=== PATIENT | male | born 1965 | race Caucasian/White ===

== ENCOUNTER 2023-06-23 22:41 | Observation (INO) | payer OTHER, SELFPAY ==
[2023-06-23] VITALS (16 sets, daily range): BP systolic 134–180; BP diastolic 63–128
--- NOTE | 2023-06-23 19:20 | ED.GENMED ---
History of Present Illness
General
Chief Complaint: Visual Problem
Time Seen by Provider: 06/23/23 19:20
Travel History
Have you had any contact with someone who has COVID-19?: No
Do you have any symptoms of coronavirus? Fever > 100 degrees, chills, cough, shortness of breath, sore throat, loss of taste or smell, muscle aches, or headache?: No
History of Present Illness
History of Present Illness:
HPI: At about 8 AM today, the patient had a vague sensation with his eye that he could not qualify any further. This went away and then when he went to [facility] where it was bright he noticed an increasing abnormality such as double vision and blurred
vision. He later went to urgent care where they removed a lot of wax in the right eye and he had some dizziness earlier. He no longer has dizziness but he is concerned of the ongoing vision change. He wears magnifiers. He does not normally have
high blood pressure but was found to be hypertensive at both urgent care and in triage today.
EXAM:
GENERAL: Well appearing in no distress, he is hypertensive
HEENT: Moist oral mucosa
EYES: The patient has no field cuts on examination, there is no disconjugate gaze, EOMI, pupils are equally reactive directly and consensually, visual acuity in the right is 20/30 and to the left is 20/30
CARDIOVASCULAR: No murmurs, normal heart rate, regular rhythm, No chest wall tenderness
PULMONARY: No respiratory distress, breath sounds are clear and equal
ABDOMEN: Soft with no peritoneal signs, no tenderness
NEUROLOGIC: Excellent strength all extremities, no coordination deficits
PSYCHIATRIC: Appropriate mental status, normal insight and judgement
EXTREMITIES: Nontender, no edema, moves all extremities equally
SKIN: No rash, no lesions
TIME OF INITIAL ENCOUNTER: 7:20 PM
NUMBER AND COMPLEXITY OF PROBLEMS ADDRESSED AT THE ENCOUNTER
� Chronic conditions affecting care: Denies any significant past medical history
� Acute Exacerbation and/or Progression of Chronic Illness: This is an acute
� Differential Diagnosis includes: Intracranial mass, uncontrolled high blood pressure, diabetes, cranial nerve palsy
AMOUNT AND/OR COMPLEXITY OF DATA TO BE REVIEWED AND ANALYZED
� I performed an independent evaluation of and my interpretation is:
EKG:
CT: CT brain negative for anything acute
X-rays:
Laboratory Studies: CBC, BMP, sed rate all normal
Other:
� Review of other/old records: I look for old records�no old records available for review
� Clinical information was obtained by an independent historian: I spoke to the at bedside
� Prescriptions/Medications Considered but not given:
� Further testing considered but not performed:
RISK OF COMPLICATIONS AND/OR MORBIDITY OR MORTALITY OF PATIENT MANAGEMENT
� Social determinants of health affecting care: Lives at home
� Discussion with other providers: Discussed with Dr. Lutz full-strength aspirin without Plavix and MR imaging for tomorrow with admission to the hospital; Dr. Santoyo for admission at 9:30 PM
� Escalation of care including admission/observation vs risk of discharge considered: The patient's eye/neuro exam is unremarkable. Although he reports double vision there are no objective findings on exam. I therefore spoke to
Dr. Bell who recommends patient stay in the hospital for MR imaging and further evaluation.
Phy Exam
Physical Exam
Physical Exam:
See HPI
Course
Orders/Labs/Results
Orders:
Orders
06/23/23 19:29
Electrocardiogram (*1) Urgent
Reason for Study: Vertigo / Dizzy
CT Head W/o Iv Contrast Urgent
Comment:
Reason For Exam: new double vision
EKG- Treatment ONCE
06/23/23 19:45
Basic Metabolic Panel Urgent
CBC/With ESR Urgent
06/23/23 21:28
Aspirin 325 mg PO NOW STA
Abnormal Lab Results
06/23/23
19:45
Hgb 18.7 H g/dL
(13.0-18.0)
MCH 31.4 H pg
(27.0-31.0)
Absolute Neuts (auto) 7.5 H 10^3/uL
(1.4-6.5)
Neutrophils % 77.2 H %
(42.2-75.2)
Lymphocytes % 15.0 L %
(20.5-51.1)
Sodium 134 L mmol/L
(135-145)
Carbon Dioxide 20 L mmol/L
(22-30)
Glucose 115 H mg/dl
(70-99)
06/23/23 19:45
06/23/23 19:45
Vital Signs
Initial and Last Documented VS:
Initial Vital Signs
Temp Pulse Resp BP Pulse Ox
98.0 F 105 17 180/119 96
06/23/23 17:33 06/23/23 17:33 06/23/23 17:33 06/23/23 17:33 06/23/23 17:33
Last Documented Vital Signs
Temp Pulse Resp BP Pulse Ox
98.0 F 78 17 144/68 99
06/23/23 17:33 06/23/23 20:30 06/23/23 20:30 06/23/23 20:30 06/23/23 20:30
*Critical Care Note
Total Time (30-74mins, 75-104mins- exclusive of procedures): Not Applicable
ED Attending Note
-
Portions of this chart may have been created with voice recognition software.� Occasional wrong word or��sound alike� substitutions may have occurred due to the inherent limitations of voice recognition software.
Discharge Plan
Departure
Patient Disposition: Admit
Date of Disposition: 06/23/23
Time of Disposition: 21:29
Presentation/result/management discussed w/ accepting MD/DO: Hospitalist
Discharge Problem:
Diplopia
Prescriptions:
No Action
loratadine [Claritin] 10 mg Tablet
10 mg PO HS
Referrals:
Joseph Suh MD [Family Provider] -
Interventions
Interventions:
*Risk Screen - Suicide Last Done: 06/23/23 17:33
*General Assessment Last Done: 06/23/23 17:33
*Neglect/Abuse Screening Last Done: 06/23/23 17:33
*ED COVID-19 Vaccine History Last Done: 06/23/23 17:33
ED- Neurological Assessment Last Done: 06/23/23 19:47
ED-EENT Assessment Last Done: 06/23/23 19:47
ED Swallowing Screen Last Done: 06/23/23 22:07
Discharge Date and Time
Print Language: TRINIDADIAN
[2023-06-23 19:54] LABS: % Basophils 0.3 % (0-2); % Eosinophils 0.6 % (0-6); % Immature Granulocytes 0.3 % (0-0.5); % Monocytes 6.6 % (1.7-9.3); % Neutrophils 77.2 % (42.2-75.2); Absolute Eosinophils 0.1 10^3/uL (0-0.7); Absolute Lymphocytes 1.5 10^3/uL (1.2-3.4); Absolute Monocytes 0.6 10^3/uL (0.1-0.6); Absolute Neutrophils 7.5 10^3/uL (1.4-6.5); Hematocrit 51.5 % (39.0-52.0); Hemoglobin 18.7 g/dL (13.0-18.0); Mean Corp Hgb Conc. 36.3 g/dL (33.0-37.0); Mean Corpuscular Hgb 31.4 pg (27.0-31.0); Mean Corpuscular Volume 86.4 fL (80.0-94.0); Mean Platelet Volume 10.2 fL (7.4-10.4); Nucleated Red Blood Cells % 0 % (-); Platelet Count 233 10^3/uL (130-400); Red Blood Cell Count 5.96 10^6/uL (4.70-6.10); Red Cell Dist. Width 12.6 % (11.5-14.5); White Blood Cell Count 9.7 10^3/uL (4.8-10.8)
[2023-06-23 20:01] LABS: Erythrocyte Sed Rate 1 mm/hour (0-20)
[2023-06-23 20:09] LABS: Blood Urea Nitrogen 11 mg/dl (9-20); Calcium 9.6 mg/dl (8.4-10.2); Carbon Dioxide 20 mmol/L (22-30); Chloride 105 mmol/L (98-107); Glucose 115 mg/dl (70-99); Potassium 4.4 mmol/L (3.5-5.1); Sodium 134 mmol/L (135-145); eGFR > 60.00
[2023-06-23] MEDS: ASPIRIN 325 MG PO (22:08)
--- NOTE | 2023-06-23 22:30 | HPS.HSE ---
Family Physician
-
Family Physician: Joseph Suh
Chief Complaint
-
Double Vision
History of Present Illness
Patient is a 58 y/o male without significant past medical history presents with double vision. Patient reports he went to [facility] this morning and on the drive he noted he was having trouble with depth perception. He returned home and worked on his
computer for several hours without any symptoms. At lunchtime he went to [facility] to run some errands, and while on the ride he had recurrence of difficulty with his depth perception. Symptoms worsened while he was at [facility] and he called his to pick
him up. With his worsening symptoms they would need to the urgent care for evaluation. Patient notes on the ride over he developed double vision describing seeing 2 cars, 1 and the oncoming addie and 1 coming directly at him. He states he only
notices double vision when looking in the distance. He denies any prior similar episodes.
Medical History
Past Medical History
Past Medical History: Reports None
Past Surgical History: Reports None
Social History
Tobacco: Non-smoker
Family History
Family History: Not pertinent
Allergies / Home Medications
Allergies reflects when Allergies were last updated in [employer].
Home Medications with original date entered in [employer]
Allergy/Medication List:
Allergies
Allergy/AdvReac Type Severity Reaction Status Date / Time
pollen extracts Allergy Mild Unknown Verified 06/23/23 21:58
Home Medications
loratadine 10 mg tablet (Claritin) 10 mg PO HS 06/23/23
Review of Systems
-
A 12 point ROS was completed and negative except as noted: Yes
Constitutional: Denies Fever or Chills
Respiratory: Denies Cough or Trouble Breathing
Cardiac: Denies Chest Pain or Palpitations
Abdomen/GI: Denies Abdominal Pain, Nausea, Vomiting or Diarrhea
Physical Exam
Vital Signs
Vital Signs
Temp Pulse Resp BP Pulse Ox
98.0 F 78 17 144/68 99
06/23/23 17:33 06/23/23 20:30 06/23/23 20:30 06/23/23 20:30 06/23/23 20:30
Physical Exam
General: Well Nourished, No Apparent Distress, Comfortable and Conversant
HEENT: Anicteric and Moist mucous membranes
Respiratory: Clear and Non Labored Respirations
Cardiac: S1/S2 and Regular Rhythm
GI: Soft and Non Tender
Musculoskeletal: No Clubbing, No Cyanosis and No Edema
Skin: Warm and Dry
Neuro: Awake, Alert, Oriented, No Motor Deficits and Other (PERRLA; No visual field deficits; Double vision is reproducible while focusing on an object at a distance)
Psych: Calm
Laboratory Results
-
06/23/23 19:45
06/23/23 19:45
Data Reviewed
-
Lab Data: Labs Reviewed by me
Impression/Plan
-
Horizontal Diplopia, history consistent with 6th cranial nerve palsy
-Consult Neurology
-Check Brain MRI with Head/Neck MRA
-Start aspirin 325mg Daily
-Check FLP and HgbA1c
-Monitor Neuro-Checks
DVT Proph: SCDs
Code Status: Full Code
--- NOTE | 2023-06-23 23:25 | W.PN.UPDATE ---
Update Note
Progress Note Update
Patient seen and examined independently. Agree with findings and plan as set forth in today's H&P by Jacquelyn Cortés PA-C.
Patient is a 58y M with no significant PMH who presents to ED complaining of vague malaise and developing visual changes. Patient states that he felt vague 'lack of focus' and 'depth perception' difficulty early this AM after waking / while
driving to the store. He worked for several hours at his computer with no issues. Later in the afternoon, while in a large / open space, he had a similar episode. He was seen at Urgent Care and had cerumen impaction treated. He felt well while
in the small exam room at Urgent Care. While riding home ( was driving) - he noted reinaldo double vision with horizontal splitting. Double vision only with both eyes open.
No headache. No numbness, tingling, ataxia, etc. no prior history of similar symptoms.
No recent complaints of fevers / chills, URI symptoms, etc.
Ass:
Horizontal Diplopia - Suspected 6th Nerve Palsy
Plan:
Observe overnight for further evaluation and treatment.
Symptoms (horizontal diplopia at distance) seems consistent with 6th nerve palsy.
? infectious, ischemic, etc, etc.
MRI, MRA brain in AM for further evaluation.
Neurology consult for additional recommendations.
Follow for any new symptoms / worsening diplopia, etc.
[2023-06-24] VITALS (11 sets, daily range): BP systolic 128–154; BP diastolic 59–81; PULSE 66–85; O2SAT 96; BMI 29.0
--- NOTE | 2023-06-24 06:07 | PTCARENOTE ---
Pt still presents with double vision for distance with both eyes open,and when he covers left eye or right eye his double vision is gone,pt denies any other changes or pain.
[2023-06-24 06:13] LABS: Hemoglobin 16.7 g/dL (13.0-18.0); Mean Corp Hgb Conc. 35.5 g/dL (33.0-37.0); Mean Corpuscular Hgb 31.1 pg (27.0-31.0); Mean Corpuscular Volume 87.5 fL (80.0-94.0); Mean Platelet Volume 10.3 fL (7.4-10.4); Platelet Count 211 10^3/uL (130-400); Red Blood Cell Count 5.37 10^6/uL (4.70-6.10); Red Cell Dist. Width 12.8 % (11.5-14.5); White Blood Cell Count 6.6 10^3/uL (4.8-10.8)
[2023-06-24 06:43] LABS: Blood Urea Nitrogen 13 mg/dl (9-20); Calcium 9.4 mg/dl (8.4-10.2); Carbon Dioxide 25 mmol/L (22-30); Chloride 103 mmol/L (98-107); Estimated Creatinine Clearance 91 ml/min; Glucose 114 mg/dl (70-99); HDL Cholesterol 46 mg/dl; LDL Cholesterol, Calculated 168 mg/dl; Magnesium 2.2 mg/dl (1.6-2.3); Potassium 4.2 mmol/L (3.5-5.1); Sodium 135 mmol/L (135-145); Total Cholesterol 236 mg/dl (50-199); Triglyceride 110 mg/dl (10-149); Very Low Density Lipoprotein 22 mg/dl (0-30); eGFR > 60.00
--- NOTE | 2023-06-24 08:07 | CON.NEURO4 ---
Addendum entered and electronically signed by Jhony Bell MD 06/24/23 13:00:
MRI brain MRA of the head and neck reviewed.
No acute or chronic infarcts are seen.
No evidence of demyelinating disease or any active demyelination.
No aneurysms in the posterior circulation, hypoplastic right vertebral artery, no significant intracranial occlusion stenosis or aneurysms seen on my review.
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 Myasthenia gravis is felt to be less likely but would still be prudent to check antibodies for
this.
Recommendations
-Can stop aspirin
-Consider low-dose statin for the high lipids
-Eye patching for the diplopia he does not have any legal restriction to drive as long as uses eye patch as his visual acuity is normal in each eye individually
-Check myasthenia antibodies acetylcholine blocking binding modulating and MuSK antibody
-Neurology follow-up in 4 to 6 weeks
-No barriers to discharge from my standpoint
Addendum entered and electronically signed by Jhony Bell MD 06/24/23 12:30:
I saw and evaluated the patient I reviewed the note by Pili Gallegos agree the findings the following comments:
58-year-old right-handed man who presented to hospital with binocular diplopia starting yesterday morning initially with depth perception and vague vision issues. He has been in his normal state of health recently with no recent illnesses no head
trauma or recent headaches. Awoke this morning feeling okay and then when he was driving to get coffee he noticed that his depth perception was off. He went to urgent care and had cleaning out of earwax with thought he was having vertigo type of
problem causing some eye movement and vision problems. His symptoms seem to worsen with reinaldo diplopia when driving with cars coming at him being yesterday.
Patient reports that it does seem like his double vision is worse at a distance. It is horizontal in nature most the time. It is binocular and disappears when he covers either eye. The diplopia also seems to be a little bit worse when looking to
the left compared to the right.
There has been no ptosis, dysarthria, dysphagia, generalized or unilateral weakness. No unusual headaches muscle pains fevers or jaw claudication. He wears reading glasses but otherwise does not have any significant or chronic ocular conditions.
No family history of any neurologic disease.
No significant past medical history besides.
Neurologic examination shows no discernible extraocular movement abnormalities but patient does say that his diplopia is worse at a distance, is horizontal and worsens with leftward gaze. I am unable to appreciate any significant left abduction
deficit. No ptosis no dysarthria vision is 20/20 in each eye. Visual pearson intact to confrontation. Intact V1�V3 to light touch bilateral. Smile symmetric tongue midline. No dysarthria.
Motor examination normal
Reflexes 2+ biceps triceps brachioradialis 3+ patella and 2+ Achilles bilaterally no clonus Babinski is negative.
Gait is normal.
CT head noncontrast unremarkable
Lab work
ESR is 1
LDL is elevated at 168
Hemoglobin A1c is 6.1
Assessment: Most likely a left-sided cranial nerve palsy. Possibilities include left-sided pontine stroke or demyelinating disease. No history that is highly suggestive of myasthenia gravis but this would be in the differential diagnosis.
-If brain MRI is negative then myasthenia gravis or cranial nerve palsy due to microvascular disease (prediabetes and hyperlipidemia) are most likely
Recommendations
-Check MRI of the brain with and without contrast MRA of the head without contrast and MRI of the neck with contrast
-If MRI proves negative we will add on antibodies for myasthenia gravis with acetylcholine blocking binding modulating and musk antibody
-Not going to recommend starting any pyridostigmine
-Recommend diet exercise and weight loss for treatment of prediabetes and consideration for statin therapy with the hyperlipidemia
-Aspirin 81 mg daily for now, if no acute or chronic stroke on MRI brain can stop this
-Goal normotension
Original Note:
Documented by User: Pili Mauricio NP 06/24/23 12:14
Consultation - Neurology 4
-
CONSULTING PHYSICIAN: Carla Bell MD
REFERRING PHYSICIAN: Hospitalists/Jacquelyn Cortés PA-C
DICTATED BY: BROOKE Christie
DATE/TIME OF REQUEST: 06/23/23
DATE/TIME OF CONSULTATION: 06/24/23
Reason for Consultation: Diplopia
History of Present Illness:
This is a 58-year-old right-handed male who has presented to the hospital on 06/23/23 with report of diplopia. Patient reports waking up yesterday morning (06/23/23) at 0630 feeling in his usual state. At 0700 [address] to [employer] to get coffee, and while
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 He returned home and was able to work until 1200 without any issues/symptoms. Around 1200 he
drove to [employer] and while driving he notes that his depth perception was completely abnormal and he didn't feel safe driving. His came and picked him up and brought him to urgent care for evaluation. He was told his right ear was impacted with wax
and they lavaged his ear. His symptoms were attributed to vertigo related to his right ear wax impaction. En route back home, he reports suddenly developing double vision. The cars coming at him were double, one in the opposing traffic addie and one
in his addie coming at him. This prompted him to come to the ER for evaluation. CT head was obtained in the ER and is negative for any acute abnormalities. NIHSS was 0. He was not a candidate for TNK/IAT due to NIHSS<6 and no LVO. He was loaded with
a full dose aspirin in the ER. Patient reports that his diplopia is ongoing. It resolves completely with closing one eye or the other. It only happens when he is looking at distant objects, not with near vision. It also appears to happen more so
when looking to the left compared to the right. The objects appear side by side, with the object on the right very slightly higher than the object on the left. At baseline he wears 'readers' but denies any known eye issues. He denies any headache,
dizziness, speech/swallow difficulty, numbness, weakness, nausea, chest pain, palpitations, and shortness of breath. He denies any recent fever, congestion, or illness. He denies any history of TIA, stroke, or events similar to this in the past. He
was not taking any blood-thinning medications.
Past Medical History: HLD
Surgical History: Denies.
Family History: Father- Parkinson disease. Mother- dementia
Social History: Former smoker. 1-2 beers/night. Denies illicit drug use.
Allergies: Pollen extracts.
Home Medications: See below.
Review of Symptoms:
Patient denies any fever, headache, chest pain, shortness of breath, GI or symptoms.
�Per the HPI.�All systems are reviewed negative except above.
Physical Exam:
The patient is afebrile, abdomen is nondistended, breathing is unlabored, skin is warm and dry, no edema.
NIH Stroke Scale:
I performed the NIH stroke scale on the patient on 06/24/23 at 0830. The patient scored 0 points on the NIH stroke scale assessment, which were assigned as follows: See below.
Neurologic Examination:
The patient is awake, alert and oriented x 3. He is able to follow commands and answer questions appropriately. There is no aphasia or dysarthria. On cranial nerve assessment, pupils are 3 mm bilateral, round and reactive to light and
accommodation. Visual pearson are full. Extraocular movements are intact. Visual acuity is 20/20 in both eyes. Facial sensations are intact and bilaterally symmetrical, there is no facial asymmetry. Hearing is intact bilaterally to normal
conversation volume. Tongue palate and uvula are midline. Sternocleidomastoid strengths are full bilaterally. Motor strengths are 5/5 bilateral upper and lower extremities on medical research [place] scale. There is no drift or involuntary movement
noted. Deep tendon reflexes are 2+ bilateral upper and lower extremities and Babinski is absent bilaterally. Sensations of pain, touch, temperature and vibration are intact and bilaterally symmetrical. There was no extinction noted on double
simultaneous stimulation. Coordination is intact by finger to nose bilaterally. Gait is steady.
Lab Results: See below.
Neuro Imaging:
1. CT Head 06/23/23: No evidence of acute intracranial abnormality.
Differentials for the patient's presentation include:
1. Likely an idiopathic left eye 6th cranial nerve palsy producing diplopia.
2. Cannot entirely exclude a left eye muscle weakness producing diplopia; myasthenia gravis, although much less likely.
3. Cannot entirely exclude a brain stem stroke producing symptoms.
4. HbA1c is 6.1, new diagnosis prediabetes.
5. Hyperlipidemia.
Patient has the following risk factors for their symptoms: HLD
IV Tenecteplase/IAT candidacy: He was not a candidate for TNK/IAT due to NIHSS<6 and no LVO.
Recommendations:
-MRI brain w/ and w/o contrast, MRA head/neck ordered/pending.
-If MRI brain is negative for stroke, can discontinue aspirin.
-Checking myasthenia gravis antibodies.
-Goal normotension.
-If MRI brain demonstrates a stroke, LDL goal will be <70 and atorvastatin 40mg daily should be initiated. LDL is 168.
-Goal normoglycemia, hbA1c is 6.1.
-NIHSS and neurological checks per unit guidelines.
-Provide patient with a stroke education packet.
-PT/OT/ST evaluations.
-Patient can wear an eye patch for comfort. No restrictions to driving if wearing patch over one eye.
-Patient should follow-up with ophthalmology, can obtain prism glasses for comfort.
-DVT prophylaxis.
-Will follow pending results.
Discussed patient care with: Dr. Bell, the patient, patient's
Vital Signs and Labs
-
Vital Signs and Labs:
Vital Signs
Temp Pulse Resp BP Pulse Ox
98.5 F 74 18 135/59 97
06/24/23 09:03 06/24/23 09:00 06/24/23 09:00 06/24/23 08:00 06/24/23 09:00
Lab Results
06/24/23 06:05
06/24/23 06:05
Sodium 135 mmol/L (135-145) 06/24/23 06:05
Potassium 4.2 mmol/L (3.5-5.1) 06/24/23 06:05
BUN 13 mg/dl (9-20) 06/24/23 06:05
Glucose 114 mg/dl (70-99) H 06/24/23 06:05
Calcium 9.4 mg/dl (8.4-10.2) 06/24/23 06:05
LDL Cholesterol, Calc 168 mg/dl 06/24/23 06:05
Medications
-
Active Medications
Generic Name Dose Route Start Last Admin
Trade Name Freq PRN Reason Stop Dose Admin
Acetaminophen 650 mg 06/23/23 23:48
Acetaminophen 650 Mg Rectal Suppository RECTAL 07/21/23 23:47
Q4HPRN PRN
MCMILLAN, mild pain, or temp >100.4F
Acetaminophen 650 mg 06/23/23 23:48
Acetaminophen 325 Mg Tablet PO 07/21/23 23:47
Q4HPRN PRN
MCMILLAN, mild pain, or temp >100.4F
Aspirin 325 mg 06/24/23 08:00 06/24/23 09:07
Aspirin 325 Mg Enteric Coated Tablet PO 07/22/23 07:59 325 mg
DAILY ANABELL Administration
Loratadine 10 mg 06/24/23 22:00
Loratadine 10 Mg Tablet PO 07/22/23 21:59
HS ANBAELL
Lorazepam 0.5 mg 06/24/23 08:58
Lorazepam 2 Mg/Ml Vial IV
PRN PRN
on-call for MRI, claustrophobi
Sodium Chloride 0 flush 06/24/23 01:00
Sodium Chloride 0.9% (Flush) Syringe IV 07/22/23 00:59
PER PROTOCOL ANABELL
Sodium Chloride 0.25 ml 06/24/23 09:02
Nss (Pf) 10 Ml Vial For Ativan 0.5 Mg Dose IV
PRN PRN
IV LORAZEPAM DILUTION
Home Medications
�Medication �Instructions �Recorded
loratadine 10 mg tablet (Claritin) 10 mg PO HS 06/23/23
NIH Stroke Score
Subsequent NIH Scale
Date of Subsequent NIH Scale: 06/24/23
Time of Subsequent NIH Scale: 08:30
NIH Stroke Score
Level of Consciousness: 0 - Alert
LOC Questions: 0-Answers both correctly
LOC Commands: 0-Performs both correctly
Best Horizontal Gaze: 0-Normal
Visual Pearson: 0=Normal, no visual loss
Facial Palsy: 0=Normal, symmetrical
Motor - Right Arm: 0=No drift 10 seconds
Motor - Left Arm: 0=No drift 10 seconds
Motor - Right Le-No drift 5 seconds
Motor - Left Le-No drift 5 seconds
Limb Ataxia: 0-Absent
Sensation: 0-Normal
Best Language: 0-No aphasia
Dysarthria: 0-Normal
Extinction and Inattention: 0-No abnormality
Total Score:: 0

Documented by User: Jhony Bell MD 06/24/23 12:21
NIH Stroke Score
NIH Stroke Score
Total Score:: 0
[2023-06-24 08:50] LABS: Glycohemoglobin (HgbA1c) 6.1 % (4.0-5.6)
[2023-06-24] MEDS: ASPIRIN ENTERIC COATED 325 MG PO (09:07)
--- NOTE | 2023-06-24 09:25 | CM ---
Addendum entered by Pauline Ware RN 06/24/23 14:14:
Patient medically ready for discharge to home. No needs noted.
Original Note:
CM reviewed medical records. Patient confirmed demographics. Patient lives independently with . Denies history of VN, SNF or DME. patient confirmed medication coverage and uses [facility]. Patient is active with his PCP. OBS letter given.
PLAN: Home no needs.
--- NOTE | 2023-06-24 10:02 | W.PN.HOSP.TC ---
Today's Communication/Plan
-
await imaging studies
possible d/c if w/u negative
Assessment / Plan
Assessment / Plan
pt is a 58 year old male
Horizontal Diplopia (double vision)-- history consistent with 6th cranial nerve palsy--await neuro input--check MRI/MRA--cont asa
DVT Proph: SCDs
Code Status: Full Code
Anticipated Discharge: Today
Subjective/Interval History
-
Date of Service: June 24, 2023
pt still with c/o of double vision at a distance--with BOTH eyes, each single eye has no c/o
Objective Data
-
Labs:
Laboratory Results
06/24/23
06:05
WBC 6.6
Hgb 16.7
Hct 47.0
Plt Count 211
Sodium 135
Potassium 4.2
Chloride 103
Carbon Dioxide 25
BUN 13
Creatinine 0.9
Glucose 114 H
Calcium 9.4
Vital Signs:
max temp for 24 hours
06/23/23
17:33
Temp 98.0 F
Vital Signs
Temp Pulse Resp BP Pulse Ox
98.5 F 74 18 135/59 97
06/24/23 09:03 06/24/23 09:00 06/24/23 09:00 06/24/23 08:00 06/24/23 09:00
Review of Systems
-
All other systems: Reviewed and negative
EENT: Denies Blurry Vision (double)
Physical Exam
-
General: Well Developed, Well Nourished and No Apparent Distress
HEENT: Normocephalic and Atraumatic
Respiratory: Clear to Auscultation; Negative Rhonchi
Cardiac: Regular Rhythm and S1/S2; Negative Murmur
GI: Soft, Nontender, Nondistended and Normal Bowel Sounds
Musculoskeletal: No Clubbing, No Cyanosis and No Edema
Neuro: Awake and Alert
Psych: Calm
[2023-06-24] MEDS: CLARITIN 10 MG PO (10:19)
[2023-06-24] MEDS: ATIVAN 0.5 MG IV (11:40)
[2023-06-24] MEDS: NSS (PRESERVATIVE FREE) 0.25 ML IV (11:42)
--- NOTE | 2023-06-24 13:52 | W.DCSUMMARY ---
Discharge Summary
Discharge Data
Date of Admission: 06/23/23
Date of Discharge: 06/24/23
-
Pending Results: No
Hospital Course
Primary care physician : Joseph Suh
Principal Discharge diagnosis : Horizontal diplopia (double vision)
Chronic Discharge diagnosis : None
Hospital Course : Patient is a 58-year-old male with no significant medical history who presented with 1 days worth of double vision. Patient reported that he went to [facility] and on the drive noticed that he had trouble with depth perception. He then
returned home and worked on his computer. He then went to run some errands and again had difficulty with depth perception. His symptoms worsened and called his to pick him up. Patient noted that on the ride over to urgent care he developed
double vision describing seeing 2 cars 1 in the oncoming addie and 1 coming directly at him. Patient was brought in as observation.
Problem #1: Horizontal diplopia (double vision). Patient was brought in and his initial head CT was negative. 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 He was initially started on aspirin which
he no longer needs to take. He underwent brain MRI, head MRA and neck MRA all of which were normal. He has been cleared for discharge by neurology. Other blood work sent by neurology includes workup for myasthenia gravis. He has been instructed
to follow-up with neurology in 4 to 6 weeks. He is able to drive as long as he wears an eye patch as each eye independently is within normal limits.
Patient is stable for discharge home at this time. If there are any questions regarding this dictation or his hospital stay, please do not hesitate to call. Our office number is [phone].
Important imaging findings :
HEAD CT IMPRESSION:
No evidence of acute intracranial abnormality.
BRAIN MRI IMPRESSION:
No acute intracranial abnormality noted.
No focal hemodynamically significant stenosis, aneurysm or occlusion.
HEAD MRA IMPRESSION:
No acute intracranial abnormality noted.
No focal hemodynamically significant stenosis, aneurysm or occlusion.
NECK MRA IMPRESSION:
No acute intracranial abnormality noted.
No focal hemodynamically significant stenosis, aneurysm or occlusion.
Discharge Plan
-
Patient Disposition: Home (Routine Discharge)
Discharge Diagnosis/Procedures: Horizontal diplopia (double vision) consistent with 6 cranial nerve palsy
Condition: Good
Diet: As tolerated and Regular
Activity: As tolerated
Driving Restrictions: You may drive with an eye patch on
Referrals:
Jhony Bell MD [Active] - in four to six weeks
()
Joseph Suh MD [Family Provider] - in less than 1 week
Prescriptions:
Continued
loratadine [Claritin] 10 mg Tablet
10 mg PO HS
Discharge Orders:
Discharge Patient (As Directed); Ordered 06/24/23
Ordered By: Angela Gould
Discharge Date and Time
Print Language: MOHAWK
--- NOTE | 2023-06-24 14:22 | PTCARENOTE ---
Labs drawn. DC instructions written. Went over DC packet with pt and his , all questions answered.
== END 2023-06-24 14:21 | disposition home or self-care (01) ==
LOC: ED 22:41
PROVIDERS: Physician Assistant Medical; ADMITTING PHYSICIAN Hospitalist; ATTENDING PHYSICIAN Internal Medicine; CONSULT PHYSICIAN Student in an Organized Health Care Education/Training Program; EMERGENCY PHYSICIAN Emergency Medicine; FAMILY PHYSICIAN Family Medicine
DX: H53.8 Other visual disturbances (principal); H53.2 Diplopia; R42 Dizziness and giddiness; I11.9 Hypertensive heart disease without heart failure; E78.5 Hyperlipidemia, unspecified; Z87.891 Personal history of nicotine dependence; Z82.0 Family history of epilepsy and other diseases of the nervous system
CPT/HCPCS: 70450; 70544; 70548; 70553; 80048; 80061; 83036; 83735; 85025; 85027; 85652; 93005; 97161; 99285; A9575; G0378